=== PATIENT | female | born 1945 | race Caucasian/White ===

== ENCOUNTER 2017-05-20 07:05 | Day surgery (SDC) | payer MEDICARE, BC ==
[2017-05-20] VITALS (8 sets, daily range): BP systolic 113–143; BP diastolic 64–71
[~2017-05-20] VITALS: Ht 165.1 cm; Wt 71.8 kg
[2017-05-20] MEDS ORDERED: fentaNYL/PF 50MCG/1 ML 2ML syringe ONE (07:21)
[2017-05-20] MEDS ORDERED: meperidine/PF 100mg/ml syringe ONE (07:21)
[2017-05-20] MEDS ORDERED: MIDAZolam 5mg/5ml vial ONE (07:22)
[2017-05-20] MEDS ORDERED: glucagon, human recombinant 1mg kit ONE (07:22)
[2017-05-20] MEDS ORDERED: diphenhydrAMINE 50 mg/ml inj ONE (07:22)
[2017-05-20] MEDS ORDERED: LIDOcaine Viscous 15ml cup ONE (07:22)
[2017-05-20] MEDS ORDERED: iohexol 300 MG/1 ML 50ml polymer ONE (07:23)
[2017-05-20] MEDS ORDERED: levoFLOXACIN-Levaquin 500mg/D5 0 ML IV ONE (07:23)
[2017-05-20] MEDS ORDERED: NO HOME MEDS (09:11)
== END 2017-05-20 09:50 | disposition home or self-care (01) ==
LOC: GI LAB 07:05
PROVIDERS: ATTEND Internal Medicine Gastroenterology
DX: Z46.59 Encounter for fitting and adjustment of other gastrointestinal appliance and device (principal); I10 Essential (primary) hypertension; I44.7 Left bundle-branch block, unspecified; Z90.49 Acquired absence of other specified parts of digestive tract; Z95.0 Presence of cardiac pacemaker; Z87.891 Personal history of nicotine dependence; Z90.89 Acquired absence of other organs; Z72.89 Other problems related to lifestyle
CPT/HCPCS: 43275; 74328; G0500; J1610; J2250; J3010; J7030; Q9967; A4620; J1200; J1956; J2175

== ENCOUNTER 2019-07-20 06:07 | Emergency (ER) | payer MEDICARE, BC ==
[~2019-07-20] VITALS: Ht 165.1 cm; Wt 77.3 kg
[~2019-07-20 06:07] MED LIST: NO HOME MEDS
[2019-07-20] MEDS ORDERED: ondansetron/PF 4mg/2ml inj IV ONE ×3 (06:50→09:05)
[2019-07-20 06:55] LABS: BASOPHILS % (AUTO) 0.5 % (0-1); EOSINOPHILS # (AUTO) 0.2 X10'3 (0-0.9); EOSINOPHILS % (AUTO) 1.6 % (0-6); HEMATOCRIT 42.8 % (35.0-45.0); HEMOGLOBIN 14.1 g/dl (12.0-16.0); LYMPHOCYTES # (AUTO) 3.6 X10'3 (1.1-4.8); MEAN CORPUSCULAR HEMOGLOBIN 28.1 PG (27.0-31.0); MEAN CORPUSCULAR VOLUME 85.3 FL (78-98); MEAN PLATELET VOLUME 8.8 FL (7.4-10.4); MONOCYTES # (AUTO) 0.3 X10'3 (0-0.9); MONOCYTES % (AUTO) 3.3 % (2-12); NEUTROPHILS # (AUTO) 6.1 X10'3 (1.8-7.7); NEUTROPHILS % (AUTO) 59.6 % (42-75); PLATELET COUNT 237 X10'3 (140-440); RED BLOOD COUNT 5.01 X10'6 (4.20-5.60); RED CELL DISTRIBUTION WIDTH 14.1 % (11.5-14.5); WHITE BLOOD COUNT 10.3 X10'3 (4.5-11.0)
[2019-07-20] MEDS ORDERED: normal saline 1000ml 1,000 ML IV ONE ×2 (06:57→11:10)
[2019-07-20] MEDS ORDERED: normal saline 1000ML IV soln IVB ONE ×3 (07:00→11:10)
[2019-07-20 07:03] LABS: ALANINE AMINOTRANSFERASE 39 U/L (12-78); ALBUMIN 3.7 G/DL (3.4-5.0); ALKALINE PHOSPHATASE 111 IU/L (46-116); ANION GAP 11 (8-16); ASPARTATE AMINO TRANSFERASE 26 U/L (10-37); BILIRUBIN,TOTAL 0.7 MG/DL (0.1-1.0); BLOOD UREA NITROGEN 15 MG/DL (7-18); CALCIUM 8.9 MG/DL (8.5-10.1); CHLORIDE 106 MMOL/L (99-107); CREATININE 0.94 MG/DL (0.40-0.90); GLUCOSE 195 MG/DL (70-104); LIPASE 226 U/L (73-393); POTASSIUM 3.6 MMOL/L (3.5-5.1); SODIUM 144 MMOL/L (135-145); TOTAL CARBON DIOXIDE 27.5 MMOL/L (24-32); TOTAL PROTEIN 7.5 G/DL (6.4-8.2); eGFR 58 ML/MIN
[2019-07-20] MEDS ORDERED: metoclopramide 5 mg/ml inj IV ONE (07:15)
[2019-07-20] MEDS ORDERED: diphenhydrAMINE 50 mg/ml inj IV ONE (07:15)
[2019-07-20 07:16] LABS: CLARITY,URINE CLEAR (Clear); COLOR,URINE YELLOW (Yellow); GLUCOSE, URINE NEGATIVE (Neg); KETONES,URINE 15 mg/dl (Neg); LEUKOCYTE ESTERASE ,URINE NEGATIVE (Neg); NITRITES, URINE NEGATIVE (Neg); OCCULT BLOOD,URINE NEGATIVE (Neg); PH,URINE 5.5 (4.8-8.0); PROTEIN,URINE NEGATIVE (Neg); UROBILINOGEN,URINE 0.2 E.U/dL (0.2-1.0)
[2019-07-20 07:22] LABS: UA COLLECTION TYPE CLN CATCH MIDSTREAM
[2019-07-20] MEDS ORDERED: morphine 2 MG/ML inj. syringe IV ONE ×2 (07:35→11:10)
[2019-07-20] MEDS ORDERED: iohexol 300mg/ml 100ml inj. ONE (08:08)
[2019-07-20] MEDS ORDERED: dextrose 5%-1/2 normal saline 1,000 ML IV SCH (11:24)
[2019-07-20] MEDS ORDERED: acetaminophen 325mg tablet PO PRN ×2 (11:25)
[2019-07-20] MEDS ORDERED: morphine 2 MG/ML inj. syringe IV PRN ×2 (11:25)
[2019-07-20] MEDS ORDERED: HYDROcodone/acetaminophen 10/325mg tab PO PRN (11:25)
[2019-07-20] MEDS ORDERED: metoclopramide 5 mg/ml inj IV PRN (11:25)
[2019-07-20] MEDS ORDERED: ondansetron/PF 4mg/2ml inj IV PRN (11:25)
[2019-07-20] MEDS ORDERED: HYDROcodone/acetaminophen 5mg/325mg tablet PO PRN (11:25)
[2019-07-20] MEDS ORDERED: mag hydrox/Alum hydrox/simeth 30ml oral suspension PO PRN (11:25)
[2019-07-20] MEDS ORDERED: magnesium hydroxide 30ml (MOM) UD suspension PO PRN (11:25)
[2019-07-20] MEDS ORDERED: OSC500T PO (11:43)
[2019-07-20] MEDS ORDERED: VIT1CAPS48 PO (11:43)
[2019-07-20] MEDS ORDERED: ASCO-139 PO (11:43)
--- NOTE | 2019-07-20 12:23 | NUR ---
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
--- NOTE | 2019-07-20 13:48 | NUR ---
Report given via telephone to EVIN Case on [place], once order clarified with Dr. Estrada, the patient will be transported to the admission bed.
--- NOTE | 2019-07-20 13:48 | NUR ---
Paged Dr. Estrada to clarify the D/C order and to discuss the patient's continued elevated BP readings.
--- NOTE | 2019-07-20 13:54 | NUR ---
Paged hospitalist to clarify discharge orders.
--- NOTE | 2019-07-20 14:12 | NUR ---
Second page to Hospitalist for order clarification. Pt ambulatory to the restroom.
--- NOTE | 2019-07-20 14:50 | NUR ---
RELIEVING RN FOR BREAK, PT IS RESTING QUIETLY ON GURNEY, EATING YOGURT, CRACKERS, AND APPLE JUICE, SUSAN WELL, NO N/V, PT IS TALKING ON PHONE
[2019-07-20 16:58] VITALS: BP 146/89
[2019-07-21] MEDS ORDERED: PANT20TA3 PO (16:30)
[2019-07-21] MEDS ORDERED: ONDA4TAB6 PO (16:30)
[2019-07-21] MEDS ORDERED: CEPH250T PO (16:34)
== END 2019-07-20 16:50 | disposition home or self-care (01) ==
LOC: ER 06:07 → ED HOLD 11:24 → UNDOADMIN 11:24 → ER 16:50 → ED HOLD 16:50
DX: K52.9 Noninfective gastroenteritis and colitis, unspecified (principal); Z20.828 Contact with and (suspected) exposure to other viral communicable diseases; R11.2 Nausea with vomiting, unspecified; Z90.49 Acquired absence of other specified parts of digestive tract; Z98.890 Other specified postprocedural states; Z79.899 Other long term (current) drug therapy
CPT/HCPCS: 36415; 71045; 74177; 80053; 81003; 83690; 83880; 85025; 87635; 93005; 96361; 96374; 96375; 96376; 99285; J1200; J2270; J2405; J2765; J7030; Q9967

== ENCOUNTER 2019-07-21 12:55 | Emergency (ER) | payer MEDICARE, BC ==
[~2019-07-21] VITALS: Ht 165.1 cm; Wt 77.5 kg
[~2019-07-21 12:55] MED LIST changes: +ASCO-139 PO; -NO HOME MEDS; +OSC500T PO; +VIT1CAPS48 PO
[2019-07-21 14:27] LABS: BASOPHILS # (AUTO) 0.1 X10'3 (0-0.2); BASOPHILS % (AUTO) 0.7 % (0-1); EOSINOPHILS % (AUTO) 0.1 % (0-6); HEMATOCRIT 41.3 % (35.0-45.0); HEMOGLOBIN 13.6 g/dl (12.0-16.0); LYMPHOCYTES # (AUTO) 2.7 X10'3 (1.1-4.8); LYMPHOCYTES % (AUTO) 18.8 % (21-51); MEAN CORPUSCULAR HEMOGLOBIN 27.9 PG (27.0-31.0); MEAN CORPUSCULAR HGB CONC 32.9 g/dL (33.0-36.5); MEAN CORPUSCULAR VOLUME 84.8 FL (78-98); MEAN PLATELET VOLUME 8.8 FL (7.4-10.4); MONOCYTES # (AUTO) 0.8 X10'3 (0-0.9); MONOCYTES % (AUTO) 5.5 % (2-12); NEUTROPHILS # (AUTO) 10.8 X10'3 (1.8-7.7); NEUTROPHILS % (AUTO) 74.9 % (42-75); PLATELET COUNT 222 X10'3 (140-440); RED BLOOD COUNT 4.87 X10'6 (4.20-5.60); RED CELL DISTRIBUTION WIDTH 13.8 % (11.5-14.5); WHITE BLOOD COUNT 14.5 X10'3 (4.5-11.0)
[2019-07-21 14:30] LABS: CLARITY,URINE CLEAR (Clear); COLOR,URINE STRAW (Yellow); GLUCOSE, URINE NEGATIVE (Neg); KETONES,URINE NEGATIVE (Neg); LEUKOCYTE ESTERASE ,URINE TRACE (Neg); NITRITES, URINE NEGATIVE (Neg); OCCULT BLOOD,URINE SMALL (Neg); PROTEIN,URINE NEGATIVE (Neg); UA COLLECTION TYPE CLN CATCH MIDSTREAM; UROBILINOGEN,URINE 0.2 E.U/dL (0.2-1.0)
[2019-07-21 14:35] LABS: BACTERIA,URINE 1+ /HPF (Neg); MUCUS STRANDS FEW /LPF (Neg); RBC,URINE 0-2 /HPF (0-2); SQUAMOUS EPITHELIAL CELL,UR MODERATE /LPF (FEW); TRANSITIONAL EPI CELLS,URINE MODERATE /HPF
[2019-07-21 14:45] LABS: ALANINE AMINOTRANSFERASE 83 U/L (12-78); ALBUMIN 3.8 G/DL (3.4-5.0); ALBUMIN/GLOBULIN RATIO 1.1 (1.1-1.5); ALKALINE PHOSPHATASE 118 IU/L (46-116); ANION GAP 7 (8-16); ASPARTATE AMINO TRANSFERASE 37 U/L (10-37); BLOOD UREA NITROGEN 12 MG/DL (7-18); BUN/CREATININE RATIO 16.2 (6.6-38.0); CALCIUM 8.5 MG/DL (8.5-10.1); CHLORIDE 105 MMOL/L (99-107); CREATININE 0.74 MG/DL (0.40-0.90); GLUCOSE 107 MG/DL (70-104); LIPASE 159 U/L (73-393); POTASSIUM 3.3 MMOL/L (3.5-5.1); SODIUM 141 MMOL/L (135-145); TOTAL CARBON DIOXIDE 28.7 MMOL/L (24-32); TOTAL PROTEIN 7.4 G/DL (6.4-8.2); eGFR 76 ML/MIN
[2019-07-21] MEDS ORDERED: PANT20TA3 PO (16:30)
[2019-07-21] MEDS ORDERED: ONDA4TAB6 PO (16:30)
[2019-07-21] MEDS ORDERED: famotidine 20mg tablet PO ONE (16:30)
[2019-07-21] MEDS ORDERED: CEPH250T PO (16:34)
[2019-07-21 17:03] VITALS: BP 180/96
== END 2019-07-21 17:06 | disposition home or self-care (01) ==
LOC: ER 12:56
DX: K29.00 Acute gastritis without bleeding (principal); N39.0 Urinary tract infection, site not specified; R10.13 Epigastric pain; R11.2 Nausea with vomiting, unspecified; Z90.49 Acquired absence of other specified parts of digestive tract; Z90.89 Acquired absence of other organs; Z79.2 Long term (current) use of antibiotics; Z79.899 Other long term (current) drug therapy
CPT/HCPCS: 36415; 80053; 81001; 83690; 85025; 87088; 99283

== ENCOUNTER 2023-04-06 21:46 | Emergency (ER) | payer MEDICARE, BC ==
[~2023-04-06] VITALS: Ht 162.6 cm; Wt 74.5 kg
[~2023-04-06 21:46] MED LIST changes: +ONDA4TAB6 PO; +PANT20TA18 PO
[2023-04-06 22:58] LABS: BILIRUBIN,URINE NEGATIVE (Neg); COLOR,URINE YELLOW (Yellow); GLUCOSE, URINE NEGATIVE (Neg); KETONES,URINE NEGATIVE (Neg); LEUKOCYTE ESTERASE ,URINE SMALL (Neg); NITRITES, URINE NEGATIVE (Neg); OCCULT BLOOD,URINE TRACE-INTACT (Neg); PROTEIN,URINE NEGATIVE (Neg); UROBILINOGEN,URINE 0.2 E.U/dL (0.2-1.0)
[2023-04-06 23:00] LABS: BASOPHILS % (AUTO) 0.3 % (0-1); EOSINOPHILS # (AUTO) 0.2 X10'3 (0-0.9); EOSINOPHILS % (AUTO) 1.4 % (0-6); HEMATOCRIT 41.1 % (35.0-45.0); HEMOGLOBIN 13.7 g/dl (12.0-16.0); LYMPHOCYTES # (AUTO) 2.3 X10'3 (1.1-4.8); LYMPHOCYTES % (AUTO) 20.4 % (21-51); MEAN CORPUSCULAR HEMOGLOBIN 28.1 PG (27.0-31.0); MEAN CORPUSCULAR HGB CONC 33.3 g/dL (33.0-36.5); MEAN CORPUSCULAR VOLUME 84.3 FL (78-98); MEAN PLATELET VOLUME 9.5 FL (7.4-10.4); MONOCYTES # (AUTO) 0.6 X10'3 (0-0.9); MONOCYTES % (AUTO) 5.5 % (2-12); NEUTROPHILS # (AUTO) 8.2 X10'3 (1.8-7.7); NEUTROPHILS % (AUTO) 72.4 % (42-75); PLATELET COUNT 227 X10'3 (140-440); RED BLOOD COUNT 4.87 X10'6 (4.20-5.60); RED CELL DISTRIBUTION WIDTH 14.2 % (11.5-14.5); WHITE BLOOD COUNT 11.3 X10'3 (4.5-11.0)
[2023-04-06 23:07] LABS: ALANINE AMINOTRANSFERASE 68 U/L (12-78); ALBUMIN 3.7 G/DL (3.4-5.0); ALBUMIN/GLOBULIN RATIO 0.9 (1.1-1.5); ALKALINE PHOSPHATASE 222 IU/L (46-116); ANION GAP 10 (8-16); ASPARTATE AMINO TRANSFERASE 54 U/L (10-37); BILIRUBIN,TOTAL 0.6 MG/DL (0.1-1.0); BLOOD UREA NITROGEN 19 MG/DL (7-18); BUN/CREATININE RATIO 31.1 (10.0-20.0); CALCIUM 8.9 MG/DL (8.5-10.1); CHLORIDE 103 MMOL/L (99-107); CREATININE 0.61 MG/DL (0.40-0.90); GLUCOSE 126 MG/DL (70-104); LIPASE 72 U/L (16-77); POTASSIUM 4.1 MMOL/L (3.5-5.1); SODIUM 139 MMOL/L (135-145); TOTAL CARBON DIOXIDE 26.2 MMOL/L (24-32); TOTAL PROTEIN 7.7 G/DL (6.4-8.2); eCRCL 65 ML/MIN; eGFR > 90 ML/MIN
[2023-04-06] MEDS: acetaminophen 1,000mg/100ml IV 100 ML IV STA (23:31)
[2023-04-06 23:35] LABS: UA COLLECTION TYPE CLN CATCH MIDSTREAM
[2023-04-06] MEDS: normal saline 1000ML IV soln IVB ONE (23:35)
[2023-04-06 23:37] LABS: BACTERIA,URINE FEW /HPF (Neg); CLARITY,URINE SLIGHTLY CLOUDY (Clear); MUCUS STRANDS MODERATE /LPF (Neg); RBC,URINE 0-2 /HPF (0-2); SQUAMOUS EPITHELIAL CELL,UR FEW /LPF (FEW); TRANSITIONAL EPI CELLS,URINE FEW /HPF; WBC CLUMPS,URINE FEW /HPF (NEGATIVE)
[2023-04-06 23:38] LABS: URIC ACID CRYSTALS FEW /HPF (NEGATIVE)
[2023-04-06] MEDS ORDERED: iohexol 300mg/ml 100ml inj. ONE (23:41)
[2023-04-07 01:01] VITALS: BP 168/77; PULSE 73; RESP 22; TEMP 98.3; O2SAT 96
== END 2023-04-07 01:03 | disposition home or self-care (01) ==
LOC: ER 21:47
DX: R10.12 Left upper quadrant pain (principal)
CPT/HCPCS: 36415; 74177; 80053; 81001; 83690; 84484; 85025; 87088; 93005; 96374; 99285; J0131; J7030; Q9967